=== PATIENT | female | born 1935 | race Caucasian/White ===

== ENCOUNTER 2021-06-02 11:35 | Emergency (ER) | payer MEDICARE, MEDICAID ==
[~2021-06-02] VITALS: Ht 160 cm; Wt 66.0 kg
[~2021-06-02 11:35] MED LIST: ALBU18HF2 IH; LOSA50TA3 PO; LOVA20TA2 PO; NOR5T PO; OMEG1CAP21 PO; OXYB10TA4 PO; PANT40TA39 PO
[2021-06-02 11:45] VITALS: BP 142/72
--- NOTE | 2021-06-02 14:34 | NUR ---
Pt given and understands d/c instructions. Ambulatory with a cane.
== END 2021-06-02 14:35 | disposition home or self-care (01) ==
LOC: ER 11:35
DX: U07.1 COVID-19 (principal); R09.81 Nasal congestion; I25.10 Atherosclerotic heart disease of native coronary artery without angina pectoris; J45.909 Unspecified asthma, uncomplicated; Z87.891 Personal history of nicotine dependence; Z95.0 Presence of cardiac pacemaker; Z88.0 Allergy status to penicillin; Z88.2 Allergy status to sulfonamides; Z88.1 Allergy status to other antibiotic agents; Z79.2 Long term (current) use of antibiotics; Z79.899 Other long term (current) drug therapy; Z88.5 Allergy status to narcotic agent
CPT/HCPCS: 71045; 87635; 99284; C9803

== ENCOUNTER 2023-08-03 12:17 | Outpatient (CLI) | payer MEDICARE, MEDICAID ==
[~2023-08-03 12:17] MED LIST changes: +LOSA-416 PO; -LOSA50TA3 PO
[2023-08-03 13:04] LABS: APTT 27 SECONDS (22-32); BASOPHILS % (AUTO) 0.7 % (0-1); EOSINOPHILS # (AUTO) 0.2 X10'3 (0-0.9); EOSINOPHILS % (AUTO) 3.3 % (0-6); HEMATOCRIT 37.9 % (35.0-45.0); HEMOGLOBIN 12.5 g/dl (12.0-16.0); LYMPHOCYTES # (AUTO) 1.3 X10'3 (1.1-4.8); LYMPHOCYTES % (AUTO) 19.2 % (21-51); MEAN CORPUSCULAR HEMOGLOBIN 28.9 PG (27.0-31.0); MEAN CORPUSCULAR VOLUME 87.7 FL (78-98); MEAN PLATELET VOLUME 8.5 FL (7.4-10.4); MONOCYTES # (AUTO) 0.6 X10'3 (0-0.9); MONOCYTES % (AUTO) 9.7 % (2-12); NEUTROPHILS # (AUTO) 4.4 X10'3 (1.8-7.7); NEUTROPHILS % (AUTO) 67.1 % (42-75); PLATELET COUNT 194 X10'3 (140-440); PROTHROMBIN TIME 10.4 SECONDS (9.0-12.0); RED BLOOD COUNT 4.32 X10'6 (4.20-5.60); RED CELL DISTRIBUTION WIDTH 14.4 % (11.5-14.5); WHITE BLOOD COUNT 6.6 X10'3 (4.5-11.0)
[2023-08-03 13:05] LABS: ALBUMIN 3.1 G/DL (3.4-5.0); ANION GAP 6 (8-16); BLOOD UREA NITROGEN 37 MG/DL (7-18); CALCIUM 9.9 MG/DL (8.5-10.1); CHLORIDE 112 MMOL/L (99-107); CHOL/HDL RATIO 1.9 (0.00-4.99); CHOLESTEROL 97 MG/DL (0-200); CREATININE 1.32 MG/DL (0.40-0.90); GLUCOSE 92 MG/DL (70-104); HDL CHOLESTEROL 50 MG/DL (35-60); LDL CHOLESTEROL 31 MG/DL (50-100); POTASSIUM 4.1 MMOL/L (3.5-5.1); SODIUM 145 MMOL/L (135-145); TOTAL CARBON DIOXIDE 27.2 MMOL/L (24-32); TRIGLYCERIDES 80 MG/DL (20-135); eGFR 38 ML/MIN
== END 2023-08-03 23:59 | disposition home or self-care (01) ==
LOC: LAB 12:17
PROVIDERS: ATTEND Internal Medicine Interventional Cardiology
DX: I25.10 Atherosclerotic heart disease of native coronary artery without angina pectoris (principal); E78.5 Hyperlipidemia, unspecified; I10 Essential (primary) hypertension
CPT/HCPCS: 36415; 80048; 80061; 85025; 85610; 85730

== ENCOUNTER 2023-08-06 12:18 | Day surgery (SDC) | payer MEDICARE, MEDICAID ==
[2023-08-06] VITALS (11 sets, daily range): BP systolic 137–177; BP diastolic 62–90; PULSE 56–69; RESP 16; TEMP 97.7; O2SAT 94–97
[~2023-08-06] VITALS: Ht 160 cm; Wt 69.2 kg
[2023-08-06] MEDS ORDERED: ISOS60TA71 PO (13:05)
[2023-08-06] MEDS ORDERED: MAGN250T11 PO (13:05)
[2023-08-06] MEDS ORDERED: CARV3.122 PO (13:05)
[2023-08-06] MEDS ORDERED: ATOR-2 PO (13:05)
[2023-08-06] MEDS ORDERED: ASPI81TA52 PO (13:05)
[2023-08-06] MEDS ORDERED: OMEP40CA21 PO (13:05)
[2023-08-06] MEDS ORDERED: LOSA100T58 PO (13:05)
[2023-08-06] MEDS: diphenhydrAMINE 25mg capsule PO PRN (13:59)
[2023-08-06] MEDS: LORazepam 0.5 MG tablet PO PRN (13:59)
[2023-08-06] MEDS: normal saline 1,000 ML IV SCH (14:01)
[2023-08-06] MEDS ORDERED: verapamil 2.5 mg/ml inj IV ONE (14:02)
[2023-08-06] MEDS ORDERED: midazolam 1 mg/ML 2ml injection ONE (14:02)
[2023-08-06] MEDS ORDERED: LIDOcaine 1% (10mg/ml) 2ml vial ONE (14:02)
[2023-08-06] MEDS ORDERED: heparin 1,000unit/ml 10ml vial 10 ML ONE (14:03)
[2023-08-06] MEDS ORDERED: fentaNYL/PF 50MCG/1 ML 2ML syringe ONE (14:03)
[2023-08-06] MEDS ORDERED: iohexol 350MG/ML 100ml bottle IV ONE (14:03)
[2023-08-06] MEDS ORDERED: nitroGLYCERIN 500mcg/5mL D5W 5 ML IV ONE (14:03)
[2023-08-06] MEDS ORDERED: HYDROcodone/acetaminophen 5mg/325mg tablet PO PRN (16:20)
[2023-08-06] MEDS ORDERED: ondansetron/PF 4mg/2ml inj IV PRN (16:20)
[2023-08-06] MEDS ORDERED: proCHLORperazine 10 MG/2 ml inj IV PRN (16:20)
[2023-08-06] MEDS ORDERED: HYDROcodone/acetaminophen 10/325mg tab PO PRN (16:20)
[2023-08-06] MEDS ORDERED: nitroGLYCERIN 0.4mg SUBLingual tab SL PRN (16:20)
[2023-08-06] MEDS ORDERED: OXAZEpam 15mg capsule PO PRN (16:20)
== END 2023-08-06 20:30 | disposition home or self-care (01) ==
LOC: SSTAY O 12:18
PROVIDERS: ATTEND Student in an Organized Health Care Education/Training Program
DX: R94.39 Abnormal result of other cardiovascular function study (principal); I12.9 Hypertensive chronic kidney disease with stage 1 through stage 4 chronic kidney disease, or unspecified chronic kidney disease; E11.22 Type 2 diabetes mellitus with diabetic chronic kidney disease; N18.9 Chronic kidney disease, unspecified; I25.10 Atherosclerotic heart disease of native coronary artery without angina pectoris; E78.00 Pure hypercholesterolemia, unspecified; J43.9 Emphysema, unspecified; Z86.73 Personal history of transient ischemic attack (TIA), and cerebral infarction without residual deficits; Z79.82 Long term (current) use of aspirin; Z79.899 Other long term (current) drug therapy; Z88.0 Allergy status to penicillin; Z88.1 Allergy status to other antibiotic agents; Z88.2 Allergy status to sulfonamides; Z88.8 Allergy status to other drugs, medicaments and biological substances
CPT/HCPCS: 93005; 93454; 99152; A6258; J1644; J2250; J3010; J3490; J7030; Q0163; Q9967; 93458; A6402; A6449; C1894